=== PATIENT | male | born 1940 | race Caucasian/White ===

== ENCOUNTER 2025-03-14 10:07 | Emergency (ER) | payer OTHER, SELFPAY ==
[2025-03-14 10:13] VITALS: BP 125/80
[2025-03-14 10:15] VITALS: BP 125/80
[2025-03-14 10:19] VITALS: BMI 24.6
[2025-03-14 10:26] LABS: Hematocrit 39.1 % (39.0-52.0); Hemoglobin 14.0 g/dL (13.0-18.0); Mean Corp Hgb Conc. 35.8 g/dL (33.0-37.0); Mean Corpuscular Volume 84.3 fL (80.0-94.0); Nucleated Red Blood Cells % 0 % (-); Platelet Count 194 10^3/uL (130-400); Red Cell Dist. Width 13.1 % (11.5-14.5)
--- NOTE | 2025-03-14 10:37 | ED.GENMED ---
History of Present Illness
General
Chief Complaint: Fall
Source: patient
Exam Limitations: none
Time Seen by Provider: 03/14/25 10:20
History of Present Illness
History of Present Illness:
85-year-old male presents via EMS from home where he lives with his . states he has been progressively getting more weak with time over the past 2 to 3 days. She states he has a history of dementia but has been more confused than usual.
Patient initially admitted to back pain to the EMS crew but denies that to us but was complaining of abdominal pain at some point. and son both state that he does not drink any water. He is let himself down to the ground or have fallen
several times over the past couple days. He is not anticoagulated. No other complaints at this time
Past History
Past History
ED Past Medical History: HTN, Hypercholesterolemia and Other (Alzheimer's dementia, BPH)
ED Past Surgical History: None
Social History
Living: with family
Phy Exam
Physical Exam
Physical Exam:
General: Well-appearing male no acute respiratory distress
HEENT: Normal cephalic mucosa dry no obvious scalp abrasion or hematoma
Heart: Regular rate and rhythm
Lungs: Clear no wheeze
Abdomen is soft mildly tender
Neurologic: Alert oriented to person only. He follows commands. No unilateral deficit.
Extremities: No cyanosis or edema
Course
Orders/Labs/Results
Orders:
Orders
03/14/25 10:15
EKG [Electrocardiogram (*1)] Urgent
Reason for Study: Fatigue / Weakness
EKG- Treatment ONCE
03/14/25 10:21
Complete Blood Count/With Diff Urgent
Comprehensive Metabolic Panel Urgent
Troponin I Urgent
03/14/25 10:35
CT Abd/pelvis W Iv Cont Urgent
Comment:
Reason For Exam: abd pain
CT Head W/o Iv Contrast Urgent
Comment:
Reason For Exam: weakness, falls
03/14/25 11:04
COVID-19 Antigen Urgent
Source: Nasal Swab
Influenza A+B Rapid Molecular Urgent
[facility] Source: Nasal Swab
Specimen Description:
03/14/25 11:57
Urinalysis Reflex To Culture Urgent
Date Specimen was Collected: 03/14/25
Time Specimen was Collected: 11:57
Urine Microscopic Reflex Cult Urgent
03/14/25 12:46
0.9% Sodium Chloride 1000 ml [Nss] 1,000 ml IV BOLUS
03/14/25 12:57
Case Management Consult ONCE
Case Management Consult: [facility]Home Care
Abnormal Lab Results
03/14/25 03/14/25
10:21 11:57
RBC 4.64 L 10^6/uL
(4.70-6.10)
Absolute Neuts (auto) 6.7 H 10^3/uL
(1.4-6.5)
Absolute Monos (auto) 0.7 H 10^3/uL
(0.1-0.6)
Lymphocytes % 14.5 L %
(20.5-51.1)
Sodium 134 L mmol/L
(135-145)
Carbon Dioxide 20 L mmol/L
(22-30)
BUN 30 H mg/dl
(9-20)
Creatinine 1.4 H mg/dL
(0.7-1.3)
Glucose 368 H mg/dl
(70-99)
Urine Glucose 4+ A
(Negative)
Urine Albumin (Reflex) 2+ A
(Neg - Trace)
03/14/25 10:21
03/14/25 10:21
Vital Signs
Initial and Last Documented VS:
Initial Vital Signs
Pulse Resp Pulse Ox
102 28 94
03/14/25 10:10 03/14/25 10:10 03/14/25 10:10
Last Documented Vital Signs
Temp Pulse Resp BP Pulse Ox
98.8 F 71 16 126/84 94
03/14/25 10:15 03/14/25 13:45 03/14/25 13:45 03/14/25 13:00 03/14/25 12:45
MDM/Problems Addressed
Differential Diagnosis Includes:
Patient with generalized weakness with multiple falls. Consider dehydration versus electrolyte abnormality versus infectious source such as UTI COVID or flu. Will obtain CT of the head and abdomen.
Labs and urinalysis pending
*Pulse Oximetry
SaO2: 95
Oxygen Mode of Delivery: Room air
Patient hypoxic: no
*Critical Care Note
Total Time (30-74mins, 75-104mins- exclusive of procedures): Not Applicable
Update Note
Update Note:
Labs reviewed no significant electrolyte abnormality. Sugar is 368. Patient is a known diabetic. CT of the head negative for acute finding urinalysis COVID and flu test were negative as well. Had long discussion with patient and family. No
overwhelming indication for admission. Family willing to take him home but consulted case management for visiting nurse/home physical therapy. They feel as though given his dementia that it would be good for him to stay in the hospital or at
another facility. They are willing to try to take him home. Etiology of symptoms could be worsening dementia versus general deconditioning
ED Attending Note
-
Portions of this chart may have been created with voice recognition software.� Occasional wrong word or��sound alike� substitutions may have occurred due to the inherent limitations of voice recognition software.
Discharge Plan
Departure
Patient Disposition: Home (Routine Discharge)
Date of Disposition: 03/14/25
Time of Disposition: 14:16
Patient with high blood pressure during this ER visit?: No
Discharge Problem:
Generalized weakness
Instructions: Preventing falls in adults
Prescriptions:
No Action
tamsulosin [Flomax] 0.4 mg capsule
0.4 mg PO DAILY Qty: 30 0RF
donepezil 5 mg Tablet
10 mg PO HS
lisinopril 20 mg Tablet
20 mg PO HS
simvastatin 40 mg Tablet
40 mg PO HS
metformin 1,000 mg Tablet
1,000 mg PO BID
sulfamethoxazole-trimethoprim [Bactrim DS] 800-160 mg tablet
1 tab PO BID Qty: 10 0RF
Referrals:
David Lantigua MD [Family Provider, Internal Medicine]
Activity Restrictions/Additional Instructions:
Continue to encourage hydration. Continue to encourage taking his medication. Please return here for worsening symptoms otherwise follow-up with your doctor
Interventions
Interventions:
*Risk Screen - Suicide Last Done: 03/14/25 10:17
*General Assessment Last Done: 03/14/25 10:17
*Neglect/Abuse Screening Last Done: 03/14/25 10:17
*ED COVID-19 Vaccine History Last Done: 03/14/25 10:17
*ED Influenza Vaccine History Last Done: 03/14/25 10:17
ED- Neurological Assessment Last Done: 03/14/25 10:18
ED-Skin Assessment Last Done: 03/14/25 10:19
Discharge Date and Time
Print Language: DANISH
[2025-03-14 10:45] LABS: ALT (SGPT) 24 U/L (0-50); AST (SGOT) 20 U/L (17-59); Albumin 4.6 g/dl (3.5-5.0); Alkaline Phosphatase 84 U/L (38-126); Blood Urea Nitrogen 30 mg/dl (9-20); Calcium 9.5 mg/dl (8.4-10.2); Carbon Dioxide 20 mmol/L (22-30); Chloride 101 mmol/L (98-107); Estimated Creatinine Clearance 40 ml/min; Glucose 368 mg/dl (70-99); Potassium 4.5 mmol/L (3.5-5.1); Sodium 134 mmol/L (135-145); Total Protein 7.3 g/dl (6.3-8.2); eGFR 49.56
[2025-03-14 10:50] LABS: Troponin I < 0.012 ng/ml
[2025-03-14 11:00] VITALS: BP 120/81
[2025-03-14 11:32] LABS: COVID-19 Antigen Negative (Negative)
[2025-03-14 12:00] VITALS: BP 143/79
[2025-03-14 12:24] LABS: Urine Character Clear (Clear)
[2025-03-14 12:35] LABS: Urine Red Blood Cell 0-2 /HPF (0-2); Urine White Cell 0-2 /HPF (0-5)
[2025-03-14 13:00] VITALS: BP 126/84
--- NOTE | 2025-03-14 13:26 | CM ---
Received consult, reviewed chart and met with family bedside in ED. Lives with his in 1 story home, [address].
Independent in ambulation and personal care, needs assistance with ADLs. Has walker but does not use it, son ordered quad cane but has not arrived yet. Has had several recent falls, Family does not want him to go to SNF d/t his dementia.
They are interested in home therapy, agreeable to referral to [facility]. Referral placed for SN, PT, OT and SW as may be interested in hiring help to assist in the evenings with bedtime.
Referral placed in [facility] for [facility].
[2025-03-14] MEDS: NSS 1000 IV (13:33)
[2025-03-14 14:09] VITALS: BP 132/79
== END 2025-03-14 15:17 | disposition home or self-care (01) ==
LOC: EMR 10:07
PROVIDERS: Physician Assistant; EMERGENCY PHYSICIAN Emergency Medicine; FAMILY PHYSICIAN Internal Medicine
DX: R53.1 Weakness (principal); M54.9 Dorsalgia, unspecified; R10.9 Unspecified abdominal pain; G30.9 Alzheimer's disease, unspecified; F02.80 Dementia in other diseases classified elsewhere, unspecified severity, without behavioral disturbance, psychotic disturbance, mood disturbance, and anxiety; E78.00 Pure hypercholesterolemia, unspecified; I10 Essential (primary) hypertension; N40.0 Benign prostatic hyperplasia without lower urinary tract symptoms; Z11.52 Encounter for screening for COVID-19
CPT/HCPCS: 96360; 99284; 70450; 74177; 80053; 81003; 81015; 84484; 85025; 87502; 87811; 93005; Q9967